=== PATIENT | male | born 2000 | race Caucasian/White ===

== ENCOUNTER 2021-09-05 04:29 | Emergency (ER) | payer MEDICAID ==
[2021-09-05 05:29] LABS: BASOPHILS # (AUTO) 0.1 10^3/uL (0.0-0.1); BASOPHILS % (AUTO) 1.1 %; EOSINOPHILS # (AUTO) 0.2 10^3/uL (0.0-0.7); EOSINOPHILS % (AUTO) 2.1 %; HCT - HEMATOCRIT 41.6 % (42.0-52.0); HGB - HEMOGLOBIN 13.8 g/dL (14.0-18.0); LYMPHOCYTES # (AUTO) 2.6 10^3/uL (1.5-3.5); LYMPHOCYTES % (AUTO) 37.3 %; MEAN CORPUSCULAR HEMOGLOBIN 29.7 pg (27.0-31.0); MEAN CORPUSCULAR HGB CONC 33.2 g/dL (32.0-36.0); MEAN CORPUSCULAR VOLUME 89.5 fL (80.0-94.0); MEAN PLATELET VOLUME 9.7 fL (7.4-11.4); MONOCYTES # (AUTO) 0.7 10^3/uL (0.0-1.0); MONOCYTES % (AUTO) 9.5 %; NEUTROPHILS # (AUTO) 3.5 10^3/uL (1.5-6.6); NEUTROPHILS % (AUTO) 49.9 %; PLT - PLATELET COUNT 353 10^3/uL (130-450); RED BLOOD COUNT 4.65 10^6/uL (4.70-6.10); RED CELL DISTRIBUTION WIDTH 12.4 % (12.0-15.0); WHITE BLOOD COUNT 7.1 x10^3/uL (4.8-10.8)
[2021-09-05 05:34] LABS: CALCIUM 9.2 mg/dL (8.5-10.3); CREATININE 0.7 mg/dL (0.6-1.2); POTASSIUM 4.1 mmol/L (3.5-5.0)
[2021-09-05 05:57] VITALS: BP 96/62
--- NOTE | 2021-09-05 06:20 | ED Physician Documentation ---
History of Present Illness - Stated complaint Stated Complaint: CHEST PX - Chief complaint Chief Complaint: Cardiac - History obtained from History obtained from: Patient - History of Present Illness Timing: Prior to arrival Pain level max: 0 Pain level now: 0 - Additonal information Additional information: patient says I had a seizure tonight. He says he has PTSD and has had seizures as a sequella, onset approximately 2 years ago. He does not recall the event tonight and feels well at this time but s.o. wanted him to come to ED for evaluation. Recently moved to [place]. He says he does not take any medications for seizures now but had been on keppra recently. By his description, he was started on keppra from [place] emergency [place] although it is unclear if he has ever had an EEG or been diagnosed with a seizure disorder. He says he ran out of the keppra several weeks ago, maybe a few months. He says that on a previous ED visit, EMS said they witnessed seizure activity and post-ictal behavior (per patient). But he also says that when he has these events, he has no recall of the event or immediately afterwards, but that he has been told by s.o. that he seems to be acting out what happened when his mother (the event that resulted in patients PTSD), and this inc ludes walking around and taking things out from cabinets, for example. He also says that on a previous ED visit (out of state), he was told he has hypokalmeia and had atrial fibrillation. He is not confident with how certain these diagnoses were Review of Systems Constitutional: reports: Reviewed and negative Eyes: reports: Reviewed and negative Cardiac: reports: Reviewed and negative Respiratory: reports: Reviewed and negative GI: reports: Reviewed and negative Neurologic: reports: Other (unclear if there was a seizure or seizure-like activity tonight (patient has no recall of event)). denies: Generalized weakness, Focal weakness, Numbness, Near syncope, Syncope, Headache, Head injury PD PAST MEDICAL HISTORY - Past Medical History Past Medical History: Yes Cardiovascular: Atrial fibrillation, Arrhythmia Psych: Post traumatic stress disorder - Past Surgical History Past Surgical History: No - Social History Does the pt smoke?: No Smoking Status: Never smoker - POLST Patient has POLST: No PD ED PE NORMAL - Vitals Vital signs reviewed: Yes - General General: Alert and oriented X 3, No acute distress, Well developed/nourished - HEENT HEENT: Atraumatic, PERRL, EOMI, Moist mucous membranes (no tongue bite/lac/echymosis) - Neck Neck: Supple, no meningeal sign, No bony TTP - Cardiac Cardiac: RRR, No murmur - Respiratory Respiratory: No respiratory distress, Clear bilaterally - Neuro Neuro: Alert and oriented X 3, air brush operator 2-12 intact, No motor deficit, No sensory deficit, Normal speech Eye Opening: Spontaneous Motor: Obeys Commands Verbal: Oriented GCS Score: 15 Results - Vitals Vitals: Oxygen O2 Source Room air - EKG (time done) No standard instances Rate: Rate (enter#) (76) Rhythm: NSR [place]: Normal Intervals: Normal [place] QRS: Normal Ischemia: Normal ST segments - Labs Labs: Laboratory Tests 09/05/21 09/05/21 05:19 05:19 WBC 7.1 RBC 4.65 L Hgb 13.8 L Hct 41.6 L MCV 89.5 MCH 29.7 MCHC 33.2 RDW 12.4 Plt Count 353 MPV 9.7 Neut # (Auto) 3.5 Lymph # (Auto) 2.6 [place] # (Auto) 0.7 Eos # (Auto) 0.2 Baso # (Auto) 0.1 Absolute Nucleated RBC 0.00 Nucleated RBC % 0.0 Sodium 136 Potassium 4.1 Chloride 102 Carbon Dioxide 27 Anion Gap 7.0 BUN 8 Creatinine 0.7 Estimated GFR (MDRD) 142 Glucose 102 H Calcium 9.2 PD MEDICAL DECISION MAKING - ED course Complexity details: reviewed results, re-evaluated patient, considered differential, d/w patient ED course: patient does not recall event tonight that he is saying was seizure. Initially was c/o chest pain to ED test conductor but by the time of my assessment, he is asymptomatic and feels well. CBC and EKG are unremarkable, with NSR on cardiac m onitor during stay. It is very unclear whether patient has true seizures, and, if so, whether they are GTC or other type. 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 Also unclear why keppra was prescribed and by whom. Given that patient is in NAD on this evaluation and no clearly established seizure history/disorder, I advised him of seizure precautions (does not drive anyway, but other precautions, such as avoiding baths, were discussed), and advised him to seek follow up in outpatient setting with a general practitioner as a means of obtaining neurology referral (and from there obtaining previous records and determining whether studies or restudies such as EEG are indicated) Departure - Departure Disposition: 01 Home, Self Care Clinical Impression: AMS (altered mental status) Condition: Good Instructions: ED Altered Loc, ED Fainting Unkn Cause Follow-Up: Ana Stinson PA-C [Provider Admit Priv/Credential] - Comments: Your blood tests tonight are normal, including your potassium level. As we discussed, you would likely need further testing to determine if you have an underlying seizure disorder; seek outpatient follow up with a general practitioner to discuss possible further testing as well as consideration of referral to a neurologist. Discharge Date/Time: 09/05/21 06:58
== END 2021-09-05 06:58 | disposition home or self-care (01) ==
LOC: EDSEX → ED 04:29
DX: R41.82 Altered mental status, unspecified (principal)
CPT/HCPCS: 36415; 80048; 85025; 93005; 99283

== ENCOUNTER 2021-10-15 08:00 | Outpatient (CLI) | payer MEDICAID ==
--- NOTE | 2021-10-15 16:40 | XRAY Report ---
PROCEDURE: Chest 2 View X-Ray INDICATIONS: CHEST PAIN TECHNIQUE: 2 view(s) of the chest. COMPARISON: None. FINDINGS: SUPPORT DEVICES: None. LUNGS/PLEURA: No focal consolidation, pleural effusion or space-occupying pneumothorax. MEDIASTINUM: The cardiomediastinal silhouette is within normal limits. BONES/SOFT TISSUES: No acute abnormality. IMPRESSION: 1.No acute cardiopulmonary abnormality. Reviewed by: Nate Steen MD on 10/15/2021 4:39 PM PST Approved by: Nate Steen MD on 10/15/2021 4:39 PM [facility] Station ID: [id number]
== END 2021-10-15 23:59 | disposition home or self-care (01) ==
LOC: DI.S 08:00 → MERGE 16:21 → DI.S 23:59
PROVIDERS: ATTEND Physician Assistant
DX: R07.89 Other chest pain (principal); R07.81 Pleurodynia

== ENCOUNTER 2021-10-17 15:28 | Emergency (ER) | payer MEDICAID ==
--- NOTE | 2021-10-17 16:12 | XRAY Report ---
PROCEDURE: Chest 2 View X-Ray INDICATIONS: SOA/ rib pain TECHNIQUE: 2 view(s) of the chest. COMPARISON: None. FINDINGS: Surgical changes and devices: None. Lungs and pleura: No pleural effusions or pneumothorax. Lungs are clear. Mediastinum: Mediastinal contours are normal. Heart size is normal. Bones and chest wall: No suspicious bony abnormalities. Soft tissues appear unremarkable. IMPRESSION: No pneumonia found, no pneumothorax. Source of reported chest pain is not identified. Reviewed by: Jay Choi MD on 10/17/2021 4:10 PM PST Approved by: Jay Choi MD on 10/17/2021 4:10 PM PST Station ID: [id number]
[2021-10-17] MEDS ORDERED: methocarbamoL 500 MG TABLET PO STA (16:45)
[2021-10-17] MEDS ORDERED: ALBUTEROL 1 PUFF INH STA (16:45)
[2021-10-17] MEDS ORDERED: MELOXICAM 7.5 MG TABLET PO STA (16:45)
--- NOTE | 2021-10-17 16:49 | ED Physician Documentation ---
History of Present Illness - Stated complaint Stated Complaint: NAUSEA/RIB PAIN - Chief complaint Chief Complaint: Abd Pain - History obtained from History obtained from: Patient - History of Present Illness Timing: How many days ago (4) Pain level max: 7 Pain level now: 5 - Additonal information Additional information: Patient is a 21-year-old female who presents to the emergency department stating that he was coughing several days ago and had wheezing. Since that time his muscles around his chest wall have begun to ache. Worse with movement, deep breathing, nothing makes it better. Has tried Motrin and Aleve without relief. Was seen at the walk-in clinic a few days ago for same. A albuterol inhaler was prescribed which she has not picked up or started using. Review of Systems Constitutional: denies: Fever, Chills GI: denies: Vomiting, Diarrhea Skin: denies: Rash Musculoskeletal: denies: Neck pain, Back pain Neurologic: denies: Headache PD PAST MEDICAL HISTORY - Past Medical History Past Medical History: Yes Cardiovascular: Atrial fibrillation, Arrhythmia Psych: Post traumatic stress disorder - Past Surgical History Past Surgical History: No - Present Medications Home Medications: Ambulatory Orders Medication Instructions Recorded Confirmed Albuterol Sulf [Ventolin Hfa 1 - 2 puffs INH Q4HR PRN #1 inhaler 10/17/21 Inhaler] Ibuprofen [Motrin] 800 mg PO Q8H PRN #30 tablet 10/17/21 methocarbamoL [Robaxin] 500 mg PO Q6H PRN #20 tablet 10/17/21 - Allergies Allergies/Adverse Reactions: Allergies Allergy/AdvReac Type Severity Reaction Status Date / Time No Known Drug Allergies Allergy Verified 10/17/21 15:37 - Social History Does the pt smoke?: No Smoking Status: Never smoker - POLST Patient has POLST: No PD ED PE NORMAL - Vitals Vital signs reviewed: Yes - General General: Alert and oriented X 3, No acute distress - HEENT HEENT: Moist mucous membranes - Neck Neck: Supple, no meningeal sign - Cardiac Cardiac: RRR - Respiratory Respiratory: No respiratory distress, Clear bilaterally - Abdomen Abdomen: Soft, Non tender, Non distended - Back Back: No CVA TTP, No spinal TTP - Derm Derm: Warm and dry - Extremities Extremities: No edema - Neuro Neuro: Alert and oriented X 3 - Psych Psych: Normal mood, Normal affect - Free text exam Free text exam: HeadTender to palpation over the intercostal muscles anterior and posterior pain is also worse with active motion such as sitting up. Results - Vitals Vitals: Vital Signs - 24 hr 10/17/21 10/17/21 10/17/21 15:32 16:51 17:06 Temperature 36.9 C Heart Rate 97 70 75 Respiratory 18 18 18 Rate Blood Pressure 116/74 116/78 O2 Saturation 100 100 10/17/21 17:38 Temperature 37 C Heart Rate 70 Respiratory Rate Blood Pressure O2 Saturation 99 Oxygen O2 Source Room air - Rads (name of study) cxr Radiology: Final report received, EMP read contemporaneously, See rad report (no acute disease) PD MEDICAL DECISION MAKING - ED course Complexity details: reviewed results, re-evaluated patient, considered differential, d/w patient ED course: Patient with what appears to be a chest wall muscle strain. We will place on muscle relaxants and anti-inflammatories for home. Did feel better with albuterol as well. Patient will be placed on this as well. Patient is well- appearing, nontoxic. Afebrile. Pain is reproducible with movement and palpation. Patient counseled regarding signs and symptoms for which I believe and urgent re-evaluation would be necessary. Patient with good understanding of and agreement to plan and is comfortable going home at this time This document was made in part using voice recognition software. While efforts are made to proofread this document, sound alike and grammatical errors may occur. Departure - Departure Disposition: 01 Home, Self Care Clinical Impression: Muscle strain of chest wall Qualifiers: Encounter type: initial encounter Qualified Code(s): S29.011A - Strain of muscle and tendon of front wall of thorax, initial encounter Condition: Good Instructions: ED Strain Abdominal Muscle Follow-Up: your,doctor in 1 week [Other] Prescriptions: Albuterol Sulf [Ventolin Hfa Inhaler] 1 - 2 puffs INH Q4HR PRN #1 inhaler PRN Reason: Shortness Of Air/Wheezing Ibuprofen [Motrin] 800 mg PO Q8H PRN #30 tablet PRN Reason: PAIN &/OR FEVER methocarbamoL [Robaxin] 500 mg PO Q6H PRN #20 tablet PRN Reason: muscle spasm Comments: Please follow-up with your doctor as needed for further care. Return if you worsen. This should improve over the next 3 to 4 days. Your prescriptions were sent to [facility] in [place]. Forms: Activity restrictions Discharge Date/Time: 10/17/21 17:38
[2021-10-17 16:52] VITALS: BP 116/78
== END 2021-10-17 17:38 | disposition home or self-care (01) ==
LOC: ED 15:28
DX: S29.011A Strain of muscle and tendon of front wall of thorax, initial encounter (principal); X58.XXXA Exposure to other specified factors, initial encounter; Y93.89 Activity, other specified
CPT/HCPCS: 71046; 94640; 94664; 99283; A9270

== ENCOUNTER 2022-03-29 08:00 | Outpatient (CLI) | payer MEDICAID ==
--- NOTE | 2022-03-29 15:18 | XRAY Report ---
PROCEDURE: Ribs w/PA Chest LT INDICATIONS: LEFT SIDED RIB PAIN TECHNIQUE: 2 views of the left ribs were acquired, along with a single view chest. COMPARISON: 10/17/2021 FINDINGS: Surgical changes and devices: None. Bones and chest wall: No fractures or dislocations. No suspicious bony lesions. Overlying soft tis sues appear unremarkable. Lungs and pleura: No pleural effusions or pneumothorax. Lungs appear clear. Mediastinum: Mediastinal contours appear normal. Heart size is normal. IMPRESSION: No acute cardiopulmonary findings and No evidence of rib fracture or pneumothorax Reviewed by: Bird Lei MD on 03/29/2022 2:17 PM [facility] Approved by: Bird Lei MD on 03/29/2022 2:17 PM [facility] Station ID: [id number]
== END 2022-03-29 23:59 | disposition home or self-care (01) ==
LOC: DI.S 08:00
PROVIDERS: ATTEND Registered Nurse
DX: R07.81 Pleurodynia (principal)